=== PATIENT | female | born 1990 | race Caucasian/White ===

== ENCOUNTER 2018-01-06 23:32 | Emergency (ER) | payer OTHER ==
[~2018-01-06] VITALS: Ht 152.4 cm; Wt 63.5 kg
[~2018-01-06 23:32] MED LIST: AMOXICILLIN500 MG PO; AMOXIL500 MG PO; BIRTH CONTROL1 EAC1 PO; BIRTH CONTROL1 EACH; CIPRO250 MG PO; CLINDAMYCIN150 MG PO; FLEXERIL5 MG PO; IBU800 MG PO; LOTRIMIN AF1% TP; MAXARON FORTE1 CAP PO; MOTRIN800 MG PO; NAPROSYN500 MG PO; NEURONTIN300 MG PO; NKHM; NORCO 325 MG-51 TAB PO; PENICILLIN VK500 MG PO; PERCOCET 325 MG1 TA6 PO; PHENERGAN W/ DE30 ML PO; PRENATAL PO; PYRIDIUM200 M1 PO; Peridex 473 ML473 ML PO; TRAMADOL HCL50 MG PO; TRIMOX500 MG PO; VIBRAMYCIN100 MG PO; ZOFRAN ODT4 MG SL; ZOFRAN4 MG PO
[2018-01-06 23:45] VITALS: BP 126/90
[2018-01-07 01:04] LABS: BILIRUBIN 1+ (NEGATIVE); BLOOD NEGATIVE (NEGATIVE); CLARITY CLOUDY (CLEAR); COLOR YELLOW (YELLOW); GLUCOSE NEGATIVE (NEGATIVE); KETONE TRACE (NEGATIVE); LEUKO ESTERASE NEGATIVE (NEGATIVE); NITRITE NEGATIVE (NEGATIVE)
[2018-01-07 01:24] LABS: BACTERIA 3+; EPITHELIAL CELLS 20-25; WBC 0-2 wbc/hpf (0-5)
== END 2018-01-07 01:15 | disposition left against medical advice (07) ==
LOC: ED 23:32
PROVIDERS: Nurse Practitioner Family
DX: F17.200 Nicotine dependence, unspecified, uncomplicated (principal); R07.81 Pleurodynia; R10.12 Left upper quadrant pain

== ENCOUNTER 2020-05-08 19:06 | Emergency (ER) | payer OTHER ==
[~2020-05-08] VITALS: Ht 152.4 cm; Wt 72.6 kg
[2020-05-08 19:33] VITALS: BP 124/76
[2020-05-08] MEDS ORDERED: DOXYCYCLINE HY100 M3 PO (20:04)
[2020-05-08] MEDS ORDERED: Bactroban Oint22 GM T (20:04)
== END 2020-05-08 20:15 | disposition home or self-care (01) ==
LOC: ED 19:06
DX: L30.9 Dermatitis, unspecified (principal); Z79.899 Other long term (current) drug therapy

== ENCOUNTER 2020-05-27 21:46 | Emergency (ER) | payer OTHER ==
[~2020-05-27] VITALS: Ht 152.4 cm; Wt 72.6 kg
[~2020-05-27 21:46] MED LIST changes: +Bactroban Oint22 GM T; +DOXYCYCLINE HY100 M3 PO
[2020-05-27 22:04] VITALS: BP 118/84
[2020-05-27] MEDS ORDERED: Bactroban Oint22 GM T (22:36)
[2020-05-27] MEDS ORDERED: CEPHALEXIN500 M1 PO (22:36)
== END 2020-05-27 23:33 | disposition home or self-care (01) ==
LOC: ED 21:46
DX: L01.00 Impetigo, unspecified (principal); L73.9 Follicular disorder, unspecified; Z79.899 Other long term (current) drug therapy

== ENCOUNTER 2020-06-10 15:32 | Emergency (ER) | payer OTHER ==
[~2020-06-10] VITALS: Ht 167.6 cm; Wt 72.6 kg
[~2020-06-10 15:32] MED LIST changes: +CEPHALEXIN500 M1 PO
[2020-06-10] MEDS ORDERED: ZYRTEC10 M3 PO (15:57)
[2020-06-10] MEDS ORDERED: FLONASE ALLERG9.9 ML NAS (15:57)
== END 2020-06-10 15:59 | disposition home or self-care (01) ==
LOC: ED 15:32
DX: B34.9 Viral infection, unspecified (principal); Z20.828 Contact with and (suspected) exposure to other viral communicable diseases

== ENCOUNTER 2021-04-14 17:34 | Inpatient (IN) | payer OTHER ==
[~2021-04-14] VITALS: Ht 152.4 cm; Wt 83.6 kg
[~2021-04-14 17:34] MED LIST changes: +FLONASE ALLERG9.9 ML NAS; +ZYRTEC10 M3 PO
[2021-04-14 18:50] LABS: BILIRUBIN Negative (Negative); BLOOD Negative (Negative); CLARITY Cloudy (Clear); COLOR Yellow (Yellow); GLUCOSE Negative (Negative); KETONE Trace (Negative); LEUKO ESTERASE 1+ (Negative); NITRITE Negative (Negative)
[2021-04-14 18:59] LABS: URINE AMPHETAMINES < 1000 (1000ng/ml); URINE BARBITURATES < 200 (200ng/ml); URINE BENZODIAZEPINES > 200 (200ng/ml); URINE CANNABINOIDS (THC) < 50 (50ng/ml); URINE COCAINE > 300 (300ng/ml); URINE METHADONE < 300 (300ng/ml); URINE OPIATES < 300 (300ng/ml)
[2021-04-14 19:01] LABS: BACTERIA TRACE; EPITHELIAL CELLS 21-30; MUCOUS 1+; WBC 0-2 wbc/hpf (0-5)
[2021-04-14 19:02] LABS: URINE PHENCYCLIDINE < 25 (25ng/ml)
[2021-04-14 20:00] VITALS: BP 119/83
[2021-04-14 23:21] VITALS: BP 118/79
[2021-04-15 04:00] VITALS: BP 133/78
[2021-04-15 08:00] VITALS: BP 119/65
[2021-04-15 12:00] VITALS: BP 120/70
[2021-04-15 16:01] VITALS: BP 103/57
[2021-04-15 20:00] VITALS: BP 110/57
[2021-04-16] VITALS: BP 104/54
[2021-04-16 08:00] VITALS: BP 126/86
[2021-04-16 12:00] VITALS: BP 82/56
== END 2021-04-16 15:29 | disposition left against medical advice (07) | DRG 770 ==
LOC: 4E 17:34
PROVIDERS: Internal Medicine; ADMIT Family Medicine; ATTEND Family Medicine
DX: F11.13 Opioid abuse with withdrawal (principal); F13.139 Sedative, hypnotic or anxiolytic abuse with withdrawal, unspecified; F17.210 Nicotine dependence, cigarettes, uncomplicated; Z53.29 Procedure and treatment not carried out because of patient's decision for other reasons; G43.909 Migraine, unspecified, not intractable, without status migrainosus; Z71.6 Tobacco abuse counseling; Z90.49 Acquired absence of other specified parts of digestive tract; Z98.891 History of uterine scar from previous surgery; Z81.1 Family history of alcohol abuse and dependence; Z81.3 Family history of other psychoactive substance abuse and dependence

== ENCOUNTER 2023-01-12 11:20 | Emergency (ER) | payer OTHER ==
[~2023-01-12] VITALS: Ht 154.9 cm; Wt 72.6 kg
[2023-01-12 11:29] VITALS: BP 122/89
[2023-01-12] MEDS ORDERED: VIBRA-TAB100 MG PO (20:27)
[2023-01-14] MEDS ORDERED: Ondansetron4 MG PO (00:42)
== END 2023-01-12 12:30 | disposition left against medical advice (07) ==
LOC: ED 11:20
DX: R51.9 Headache, unspecified (principal); Z53.21 Procedure and treatment not carried out due to patient leaving prior to being seen by health care provider

== ENCOUNTER 2023-01-12 15:32 | Emergency (ER) | payer OTHER ==
[2023-01-12 16:20] LABS: BASO % 0.3 % (0.0-1.0); EOS % 0.4 % (1.0-4.0); HEMATOCRIT 39.4 % (37.0-47.0); LYMPH # 2.6 10*3/uL (1.3-4.4); LYMPH % 23.8 % (27.0-41.0); MEAN CELL VOLUME 91.2 fl (81.0-99.0); MEAN CORPUSCULAR HGB 30.8 pg (27.0-31.0); MEAN CORPUSCULAR HGB CONC 33.8 g/dl (33.0-37.0); MEAN PLATELET VOLUME 10.7 fl (9.6-12.3); MONO # 0.8 10*3/uL (0.1-1.0); MONO % 6.9 % (3.0-9.0); NEUT # 7.4 10*3/uL (2.3-7.9); NEUT % 68.4 % (47.0-73.0); PLATELET COUNT AUTOMATED 219 10*3/uL (130-400); RED BLOOD COUNT 4.32 10*6/uL (4.10-5.10); RED CELL DISTRI WIDTH 12.4 % (0-14.5); WHITE BLOOD COUNT 10.8 10*3/uL (4.8-10.8)
[2023-01-12 16:32] LABS: ACT PARTIAL THROMBO TIME 26.5 SECONDS (20.0-32.1)
[2023-01-12 16:35] LABS: ALKALINE PHOSPHATASE 51 U/L (46-116); BETA-HCG, QUANT < 3.0 mIU/mL (0-10); BUN 7 mg/dl (9-23); CHLORIDE 106 mmol/L (98-107); POTASSIUM 3.5 mmol/L (3.4-5.1); SGPT/ALT 41 U/L (10-49); TOTAL PROTEIN 6.9 gm/dL (6.0-8.0)
[2023-01-12 16:37] LABS: ETHYL ALCOHOL < 3.0 mg/dl (<3)
[2023-01-12 20:13] VITALS: BP 106/64
[2023-01-12] MEDS ORDERED: VIBRA-TAB100 MG PO (20:27)
[2023-01-14] MEDS ORDERED: Ondansetron4 MG PO (00:42)
== END 2023-01-12 20:31 | disposition home or self-care (01) ==
LOC: ED 15:32
PROVIDERS: Internal Medicine
DX: S09.90XA Unspecified injury of head, initial encounter (principal); J18.9 Pneumonia, unspecified organism; Z90.49 Acquired absence of other specified parts of digestive tract; Z98.890 Other specified postprocedural states; F17.200 Nicotine dependence, unspecified, uncomplicated; X58.XXXA Exposure to other specified factors, initial encounter; Y93.89 Activity, other specified; Y92.89 Other specified places as the place of occurrence of the external cause; Y99.8 Other external cause status

== ENCOUNTER 2023-01-19 17:46 | Emergency (ER) | payer OTHER ==
[~2023-01-19] VITALS: Ht 167.6 cm; Wt 99.8 kg
[~2023-01-19 17:46] MED LIST changes: +Ondansetron4 MG PO; +VIBRA-TAB100 MG PO
[2023-01-19 21:33] VITALS: BP 137/90
== END 2023-01-19 21:35 | disposition home or self-care (01) ==
LOC: ED 17:46
DX: T40.1X4A Poisoning by heroin, undetermined, initial encounter (principal); Y92.89 Other specified places as the place of occurrence of the external cause; Z90.49 Acquired absence of other specified parts of digestive tract; Z98.890 Other specified postprocedural states; F17.200 Nicotine dependence, unspecified, uncomplicated; F19.10 Other psychoactive substance abuse, uncomplicated